=== PATIENT | male | born 1950 | race Caucasian/White ===

== ENCOUNTER 2020-09-27 11:26 | Inpatient (IN) | payer MEDICARE, MEDICAID ==
[~2020-09-27] VITALS: Ht 167.6 cm; Wt 73.0 kg
[2020-09-27 12:40] LABS: BASOPHILS % 1.1 % (0.0-2.0); EOSINOPHILS % 1.6 % (0.0-5.0); HEMATOCRIT. 37.6 % (42.0-52.0); HEMOGLOBIN. 12.7 g/dL (14.0-18.0); LYMPHOCYTES % 10.2 % (20.0-50.0); MEAN CORPUSCULAR HEMOGLOBIN 29.9 pg (28.0-32.0); MEAN CORPUSCULAR VOLUME 88.3 fL (80.0-94.0); MEAN PLATELET VOLUME 7.8 fl (7.4-10.4); MONOCYTES % 8.7 % (2.0-8.0); NEUTROPHILS % 78.4 % (40.0-76.0); PLATELET 289 x1000/uL (130-400); RED BLOOD CELL COUNT 4.25 mill/uL (4.7-6.1)
[2020-09-27 12:45] LABS: CHLORIDE 104 mEq/L (98-107)
[2020-09-27 12:49] LABS: PROTHROMBIN TIME 10.9 sec (9.6-11.0)
[2020-09-27 12:52] LABS: CLARITY URINE CLEAR (CLEAR); COLOR URINE YELLOW (YELLOW); KETONES URINE TRACE (NEGATIVE); LEUKOCYTE ESTERASE URINE NEGATIVE (NEGATIVE); NITRITE URINE NEGATIVE (NEGATIVE); OCCULT BLOOD URINE NEGATIVE (NEGATIVE); PROTEIN URINE 1+ (NEGATIVE); SPECIFIC GRAVITY URINE 1.028 (1.005-1.030); UROBILINOGEN URINE 0.2 E.U./dL (0.2-1.0)
[2020-09-27 22:30] LABS: *AMPHETAMINES SCREEN URINE NEGATIVE (NEGATIVE); *BARBITURATES SCREEN URINE NEGATIVE (NEGATIVE); *BENZODIAZEPINES SCREEN URINE NEGATIVE (NEGATIVE); *COCAINE SCREEN URINE NEGATIVE (NEGATIVE); METHADONE URINE SCREEN NEGATIVE (NEGATIVE)
[2020-09-27 22:31] LABS: CANNABINOID URINE SCREEN NEGATIVE (NEGATIVE); OPIATES URINE SCREEN NEGATIVE (NEGATIVE); PHENCYCLIDINE URINE SCREEN NEGATIVE (NEGATIVE)
[2020-09-28] VITALS: BP 173/74
[2020-09-28] MEDS ORDERED: ONDANSETRON HCL 4MG/2ML INJ IV PRN
[2020-09-28 00:35] VITALS: BP 159/87
[2020-09-28 04:00] VITALS: BP_SYST 148; BP_SYST 162; BP_DIAS 78; BP_DIAS 87
[2020-09-28] MEDS: FAMOTIDINE 20MG TABLET PO SCH ×2 (08:36→20:14)
[2020-09-28] MEDS: QUETIAPINE FUMARATE 50MG TABLET PO SCH ×2 (08:36→20:14)
[2020-09-28 12:00] VITALS: BP 150/72
[2020-09-28] MEDS ORDERED: ACETAMINOPHEN 325MG TABLET PO PRN (12:30)
[2020-09-28] MEDS ORDERED: CLONIDINE 0.1MG TABLET PO PRN (12:45)
[2020-09-28] MEDS: AMLODIPINE 10MG TABLET PO SCH (13:44)
[2020-09-28] MEDS: ENOXAPARIN 40MG/0.4ML SYR SUBCUT SCH (13:44)
[2020-09-28 16:00] VITALS: BP 147/55
[2020-09-28 20:00] VITALS: BP 140/70
[2020-09-29] VITALS: BP 139/80
[2020-09-29 04:00] VITALS: BP 148/87
[2020-09-29 08:00] VITALS: BP 142/77
[2020-09-29] MEDS: QUETIAPINE FUMARATE 50MG TABLET PO SCH ×2 (08:35→21:39)
[2020-09-29] MEDS: FAMOTIDINE 20MG TABLET PO SCH ×2 (08:35→21:39)
[2020-09-29] MEDS: AMLODIPINE 10MG TABLET PO SCH (08:36)
[2020-09-29] MEDS: ENOXAPARIN 40MG/0.4ML SYR SUBCUT SCH (13:58)
[2020-09-29 16:00] VITALS: BP 121/64
[2020-09-29 20:00] VITALS: BP 165/96
[2020-09-30 04:00] VITALS: BP 134/81
[2020-09-30 08:00] VITALS: BP 152/91
[2020-09-30] MEDS: AMLODIPINE 10MG TABLET PO SCH (08:43)
[2020-09-30] MEDS: QUETIAPINE FUMARATE 50MG TABLET PO SCH (08:43)
[2020-09-30] MEDS: FAMOTIDINE 20MG TABLET PO SCH (08:43)
[2020-09-30 12:14] VITALS: BP 141/81
[2020-09-30] MEDS: ENOXAPARIN 40MG/0.4ML SYR SUBCUT SCH (13:00)
== END 2020-09-30 13:45 | disposition home or self-care (01) | DRG 663 ==
LOC: ER 11:42 → ENRESERV 22:33 → 8WST 23:27
PROVIDERS: ADMIT Internal Medicine; ATTEND Internal Medicine
DX: D64.9 Anemia, unspecified (principal); F20.9 Schizophrenia, unspecified; I10 Essential (primary) hypertension; F17.200 Nicotine dependence, unspecified, uncomplicated; I25.10 Atherosclerotic heart disease of native coronary artery without angina pectoris; Z59.0 Homelessness; Z88.6 Allergy status to analgesic agent; Z91.018 Allergy to other foods; Z95.1 Presence of aortocoronary bypass graft; Z86.73 Personal history of transient ischemic attack (TIA), and cerebral infarction without residual deficits
CPT/HCPCS: 36415; 71045; 80053; 80305; 80320; 81003; 84484; 85025; 93005; 97116; 97162; 99285; J1650; G0480